=== PATIENT | female | born 1965 | race Two or more races ===

== ENCOUNTER 2019-12-27 23:54 | Inpatient (IN) | payer MEDICAID, OTHER ==
[~2019-12-27] VITALS: Ht 157.5 cm; Wt 84.2 kg
[2019-12-28] MEDS ORDERED: SODIUM CHLORIDE 0.9% 1,000 ML IV ONE ×2 (00:09)
[2019-12-28] MEDS ORDERED: DOXYCYCLINE 100 MG TAB/CAP PO ONE (00:15)
[2019-12-28] MEDS ORDERED: MAGNESIUM SULFATE 1GM/100ML 100 ML IV ONE (00:15)
[2019-12-28] MEDS ORDERED: DexAMETHasone SOD PHOS 10MG/1ML VIAL INJ IV ONE (00:15)
[2019-12-28] MEDS ORDERED: ZINC SULFATE 220mg CAP or TAB PO ONE (00:30)
[2019-12-28] MEDS ORDERED: ASCORBIC ACID 500 MG TAB PO ONE (00:30)
[2019-12-28] MEDS ORDERED: ONDANSETRON HCL 4 MG/2 ML VIAL IV PRN (02:15)
[2019-12-28] MEDS ORDERED: DOCUSATE SOD 100 MG CAP PO PRN (02:15)
[2019-12-28] MEDS ORDERED: MORPHINE SULF INJ 2 MG/ML SYRINGE 1ML IV PRN (02:15)
[2019-12-28] MEDS ORDERED: LORazepam 0.5 MG TAB PO PRN ×2 (02:15→15:00)
[2019-12-28 04:01] LABS: Basophils # (auto) 0 10 ^3/uL (0-0.2); Basophils % (auto) 0.3 % (0.0-2.0); Eosinophils # (auto) 0 10 ^3/uL (0-0.8); Hematocrit 33.5 % (36.0-46.0); Hemoglobin 11.3 g/dL (12.2-16.2); Lymphocytes # (auto) 0.9 10 ^3/uL (0.4-5.4); Lymphocytes % (auto) 10.2 % (10.0-50.0); Mean Corpuscular Hemoglobin 28.8 pg (28.0-32.0); Mean Corpuscular Hgb Conc. 33.6 g/dL (32.0-36.0); Mean Corpuscular Volume 85.7 fL (80.0-100.0); Monocytes # (auto) 0.5 10 ^3/uL (0-1.3); Neutrophils % (auto) 83.5 % (37.0-80.0); Platelet Count (auto) 167 10^3/uL (140-450); Red Blood Cells 3.91 10^6/uL (4.0-5.20); Red Cell Distribution Width 16.1 % (11.8-14.3); White Blood Cell 8.4 10^3/uL (4.4-10.8)
[2019-12-28 04:15] LABS: Albumin 2.6 g/dL (3.4-5.0); Calcium 7.8 mg/dL (8.5-10.1)
[2019-12-28 04:24] LABS: BUN/Creatinine Ratio 9.9; CRP High Sensitivity 13.8 mg/dL (< 0.3); Total Protein 7.1 g/dL (6.4-8.2)
--- NOTE | 2019-12-28 05:48 | NUR ---
Telemetry admit from ER ZAC BURGESS admitted to Telemetry unit after SBAR received. Patient oriented to Sara Lopez, primary RN, unit, room, bed, and unit policies regarding patient care and visiting hours. Patient now on continuous telemetry monitoring, tele box #2 and telemetry reading on arrival to unit is SR at 66. Patient placed on bedside oxygen at 4L, weighed by bedscale and encouraged to call if they need something. All questions and concerns addressed, patient verbalized understanding.
[2019-12-28] MEDS ORDERED: ALBUTEROL SULF HFA 90MCG INH 200DOSE IN SCH ×2 (06:00→22:00)
[2019-12-28] MEDS ORDERED: LEVO25TA6 PO (06:31)
[2019-12-28] MEDS ORDERED: GUAI100S6 PO (06:31)
[2019-12-28] MEDS ORDERED: ACET-1156 PO (06:31)
[2019-12-28] MEDS ORDERED: LISI40TA PO (06:31)
[2019-12-28] MEDS: SODIUM CHLORIDE 0.9% 1,000 ML IV SCH ×2 (07:03→12:15)
[2019-12-28 07:19] VITALS: BP 159/88
--- NOTE | 2019-12-28 07:53 | NUR ---
RT NOTE PT RECEIVED ON 4L NC WITH NO SIGNS OF DISTRESS NOTED. SPO2 95 HR 64 RR 16. WILL CONTINUE TO MONITOR.
[2019-12-28 09:00] VITALS: BP 126/79
[2019-12-28] MEDS: ASCORBIC ACID 1,000 MG TAB PO SCH (10:00)
[2019-12-28] MEDS: CHOLECALCIFEROL (VITD3) 1,000UNIT=25mCg TAB PO SCH (10:00)
[2019-12-28] MEDS: ZINC SULFATE 220mg CAP or TAB PO SCH (10:00)
[2019-12-28] MEDS: DOXYCYCLINE 100 MG TAB/CAP PO SCH ×2 (10:00→21:40)
[2019-12-28] MEDS ORDERED: ENOXAPARIN SOD 40 MG/0.4 ML SYRINGE SC SCH (10:00)
[2019-12-28 12:06] LABS: Urine Bacteria FEW /hpf (None Seen); Urine Blood TRACE /uL (Negative); Urine WBC 3 /hpf (0 - 5)
[2019-12-28 13:00] VITALS: BP 157/71
[2019-12-28] MEDS ORDERED: POTASSIUM CHL 20 Meq TABLET PO ONE (14:45)
[2019-12-28] MEDS ORDERED: FUROSEMIDE 20 MG/2 ML VIAL IV ONE (14:45)
[2019-12-28] MEDS ORDERED: DexAMETHasone 4 MG TAB PO ONE (14:45)
[2019-12-28] MEDS ORDERED: ENOXAPARIN SOD 60 MG/0.6 ML SYRINGE SC ONE (15:00)
[2019-12-28 17:00] VITALS: BP 158/72
[2019-12-28] MEDS: PANTOPRAZOLE 40 MG TAB PO SCH (17:47)
[2019-12-28] MEDS: hydrALAZINE HCL 20 MG/ML VL IV PRN (17:49)
--- NOTE | 2019-12-28 19:20 | NUR ---
Opening Shift Note Assumed care of patient after receiving report from MEME Tilley. Patient is awake and alert, with no S/S of distress/SOB or pain. Patient on 3L of oxygen via NC. Call light within reach, bed in lowest position x2 side rails, HOB semi Fowlers. Instructed on POC and to call for assist PRN, will continue to monitor for changes Q1hr and PRN.
[2019-12-28] MEDS: DexAMETHasone 4 MG TAB PO SCH (21:40)
[2019-12-28] MEDS: ENOXAPARIN SOD 100 MG/1 ML SYRINGE SC SCH (21:41)
[2019-12-28 22:00] VITALS: BP 137/84
[2019-12-29] MEDS: hydrALAZINE HCL 20 MG/ML VL IV PRN ×2 (04:30→12:52)
--- NOTE | 2019-12-29 04:30 | NUR ---
Right AC IV DC'd Patient self DC'd IV from right AC. Patient stated it got caught and pulled out. No trauma to site. Will continue to monitor.
--- NOTE | 2019-12-29 04:36 | NUR ---
Patient complaints of dizziness, BP Patient complains of slight dizziness and mild headache upon awakening. Blood pressure was checked and was seen to be elevated, rechecked and read 180/91. PRN hydralazine given for SBP >150. Will reassess and continue to monitor.
[2019-12-29 04:48] VITALS: BP 180/91
--- NOTE | 2019-12-29 05:16 | NUR ---
BP reassessed BP of 144/56. Patient sleeping with no s/s of distress. Will continue to monitor.
[2019-12-29] MEDS: HYDROcodone-ACET 5/325MG TAB PO PRN (06:04)
--- NOTE | 2019-12-29 07:50 | NUR ---
OPENING NOTE ASSUMED CARE OF PT. ALERT AND ORIENTED. NO S/S OF SOB/DISTRESS NOTED. BED SET TO LOWEST POSITION/LOCKED. BED RAILS UP X2. CALL LIGHT WITHIN REACH. INSTRUCTED PT TO CALL FOR ASSISTANCE. UPDATE ON POC. PT VERBALIZED UNDERSTANDING. WILL CONTINUE TO MONITOR Q1HR AND PRN.
[2019-12-29 07:57] LABS: Basophils # (auto) 0 10 ^3/uL (0-0.2); Basophils % (auto) 0.1 % (0.0-2.0); Eosinophils # (auto) 0 10 ^3/uL (0-0.8); Hematocrit 39.2 % (36.0-46.0); Hemoglobin 13.2 g/dL (12.2-16.2); Lymphocytes # (auto) 1.2 10 ^3/uL (0.4-5.4); Mean Corpuscular Hemoglobin 28.8 pg (28.0-32.0); Mean Corpuscular Hgb Conc. 33.6 g/dL (32.0-36.0); Mean Corpuscular Volume 85.8 fL (80.0-100.0); Monocytes # (auto) 0.9 10 ^3/uL (0-1.3); Monocytes % (auto) 8.9 % (0.0-12.0); Neutrophils # (auto) 7.7 10 ^3/uL (1.6-8.6); Platelet Count (auto) 232 10^3/uL (140-450); Red Blood Cells 4.57 10^6/uL (4.0-5.20); Red Cell Distribution Width 16.6 % (11.8-14.3); White Blood Cell 9.8 10^3/uL (4.4-10.8)
[2019-12-29 08:10] LABS: Albumin 2.6 g/dL (3.4-5.0); Calcium 8.9 mg/dL (8.5-10.1); Potassium 4.1 mmol/L (3.5-5.1)
[2019-12-29 08:13] LABS: BUN/Creatinine Ratio 15.6; Bilirubin, Total 0.7 mg/dL (0.2-1.0); Total Protein 7.8 g/dL (6.4-8.2)
[2019-12-29 09:00] VITALS: BP 144/56
[2019-12-29] MEDS: DexAMETHasone 4 MG TAB PO SCH ×2 (09:09→22:37)
[2019-12-29] MEDS: ZINC SULFATE 220mg CAP or TAB PO SCH (09:09)
[2019-12-29] MEDS: ENOXAPARIN SOD 100 MG/1 ML SYRINGE SC SCH ×2 (09:10→22:36)
[2019-12-29] MEDS: DOXYCYCLINE 100 MG TAB/CAP PO SCH ×2 (09:10→22:36)
[2019-12-29] MEDS: PANTOPRAZOLE 40 MG TAB PO SCH (09:10)
[2019-12-29] MEDS: CHOLECALCIFEROL (VITD3) 1,000UNIT=25mCg TAB PO SCH (09:10)
[2019-12-29] MEDS: ASCORBIC ACID 1,000 MG TAB PO SCH (09:10)
[2019-12-29 13:00] VITALS: BP 172/86
[2019-12-29] MEDS ORDERED: LISINOPRIL 20 MG TAB PO ONE (14:00)
[2019-12-29] MEDS ORDERED: FUROSEMIDE 20 MG/2 ML VIAL IV ONE (14:00)
[2019-12-29] MEDS ORDERED: LEVOTHYROXINE SODIUM 100 MCG TAB PO ONE (14:00)
[2019-12-29] MEDS ORDERED: cefTRIAXone 1GM/50ML D5W 50 ML IV ONE (14:00)
[2019-12-29] MEDS ORDERED: POTASSIUM CHL 10 Meq TABLET PO ONE (14:00)
[2019-12-29 17:00] VITALS: BP 167/91
--- NOTE | 2019-12-29 19:30 | NUR ---
opening note Pt is A&Ox4. Respirations even and nonlabored on 3lnc. Pt denies pain or discomfort at this time, will continue to monitor. no s/s of distress at this time. bed in low locked position, call light within reach.
[2019-12-29 22:00] VITALS: BP 159/84
[2019-12-30 05:00] VITALS: BP 144/72
[2019-12-30] MEDS: LEVOTHYROXINE SODIUM 100 MCG TAB PO SCH (06:26)
[2019-12-30 06:35] LABS: Albumin 2.4 g/dL (3.4-5.0); BUN/Creatinine Ratio 27.5; Calcium 8.4 mg/dL (8.5-10.1)
[2019-12-30 06:38] LABS: Bilirubin, Total 0.4 mg/dL (0.2-1.0); Total Protein 6.8 g/dL (6.4-8.2)
--- NOTE | 2019-12-30 07:05 | NUR ---
closing note pt resting in semi fowlers with the HOB at 30 degrees. Respirations are even and nonlabored on 3Lnc. no s/s of respiratory distress of discomfort. pt is alert and oriented x4. pt remains ambulatory to self. Endorsed care to day shift RN Perri.
[2019-12-30 09:00] VITALS: BP 180/90
[2019-12-30] MEDS: cefTRIAXone 1GM/50ML D5W 50 ML IV SCH (09:43)
[2019-12-30] MEDS: FUROSEMIDE 20 MG/2 ML VIAL IV SCH (09:43)
[2019-12-30] MEDS: POTASSIUM CHL 10 Meq TABLET PO SCH (09:44)
[2019-12-30] MEDS: DexAMETHasone 4 MG TAB PO SCH (09:44)
[2019-12-30] MEDS: PANTOPRAZOLE 40 MG TAB PO SCH (09:44)
[2019-12-30] MEDS: DOXYCYCLINE 100 MG TAB/CAP PO SCH ×2 (09:44→22:03)
[2019-12-30] MEDS: ZINC SULFATE 220mg CAP or TAB PO SCH (09:44)
[2019-12-30] MEDS: ASCORBIC ACID 1,000 MG TAB PO SCH (09:45)
[2019-12-30] MEDS: LISINOPRIL 20 MG TAB PO SCH (09:46)
[2019-12-30] MEDS: CHOLECALCIFEROL (VITD3) 1,000UNIT=25mCg TAB PO SCH (09:46)
[2019-12-30] MEDS: ENOXAPARIN SOD 100 MG/1 ML SYRINGE SC SCH ×2 (09:46→22:04)
[2019-12-30] MEDS: hydrALAZINE HCL 20 MG/ML VL IV PRN ×2 (12:40→19:04)
[2019-12-30 13:00] VITALS: BP 176/89
[2019-12-30 13:40] VITALS: BP 150/83
[2019-12-30] MEDS ORDERED: DEXTROSE (50%) 50ML SYRG IV PRN (14:45)
[2019-12-30] MEDS ORDERED: SODIUM CHL 0.9% IV ONE (15:15)
[2019-12-30] MEDS ORDERED: TOCILIZUMAB IV ONE (15:15)
[2019-12-30] MEDS ORDERED: ACETAMINOPHEN 650 mg PER 20 mL UD PO ONE (16:30)
[2019-12-30] MEDS ORDERED: diphenhdrAMINE HCL 50 MG/1 ML VL IV ONE (16:30)
[2019-12-30] MEDS ORDERED: methylPREDNISolone SOD SUCC 40 MG/ML VL IV ONE (16:30)
[2019-12-30] MEDS: ACCU-CHEK COMFORT CURVE STRIP VI SCH ×2 (16:50→22:00)
[2019-12-30 17:00] VITALS: BP 160/84
[2019-12-30] MEDS ORDERED: TOCILIZUMAB 400 MG in SODIUM CHL 0.9% 80 ML IV ONE (17:00)
--- NOTE | 2019-12-30 17:00 | NUR ---
EMELYID TEST PER PATIENT SHE GOT TESTED IN [place] APPOINTMENT ID# [id number] APPOINTMENT DATE 12/22/2019 RESULTS ON 12/23/2019-POSITIVE RESULTS PROVIDED BY [facility]
[2019-12-30] MEDS: InsuLIN REG 1unit/0.01ml Soln (100units/ml) SC SCH ×2 (17:27→22:34)
--- NOTE | 2019-12-30 17:43 | NUR ---
ACTEMRA STARTED ACTEMRA INFUSION. BP: 155/83. NO S/S OF SOB/DISTRESS NOTED. WILL CONTINUE TO MONITOR.
--- NOTE | 2019-12-30 18:47 | NUR ---
ACTEMRA ACTEMRA INFUSION ENDED. BP: 156/77. NO S/S OF SOB/DISTRESS NOTED. WILL CONTINUE TO MONITOR.
--- NOTE | 2019-12-30 19:20 | NUR ---
Opening Shift Note Received report from Faiza VALENTINE. Assumed care of patient, awake and alert. No S/S of distress/SOB or pain. Instructed on POC and to call for assist PRN, will continue to monitor for changes Q1hr and PRN.
[2019-12-30 22:00] VITALS: BP 158/64
[2019-12-30] MEDS: DexAMETHasone SOD PHOS 4 MG/1ML SDV INJ IV SCH (22:03)
[2019-12-31 05:00] VITALS: BP 159/96
[2019-12-31] MEDS: hydrALAZINE HCL 20 MG/ML VL IV PRN ×2 (05:37→22:12)
[2019-12-31 06:46] LABS: Basophils # (auto) 0 10 ^3/uL (0-0.2); Basophils % (auto) 0.2 % (0.0-2.0); Eosinophils # (auto) 0 10 ^3/uL (0-0.8); Hematocrit 38.8 % (36.0-46.0); Hemoglobin 12.8 g/dL (12.2-16.2); Lymphocytes # (auto) 1.2 10 ^3/uL (0.4-5.4); Lymphocytes % (auto) 10.4 % (10.0-50.0); Mean Corpuscular Hemoglobin 28.8 pg (28.0-32.0); Monocytes # (auto) 0.9 10 ^3/uL (0-1.3); Neutrophils # (auto) 9.4 10 ^3/uL (1.6-8.6); Neutrophils % (auto) 81.4 % (37.0-80.0); Nucleated Red Blood Cells % 0.2 %; Platelet Count (auto) 274 10^3/uL (140-450); Red Blood Cells 4.46 10^6/uL (4.0-5.20); Red Cell Distribution Width 16.8 % (11.8-14.3); White Blood Cell 11.6 10^3/uL (4.4-10.8)
[2019-12-31 06:58] LABS: Potassium 4.5 mmol/L (3.5-5.1)
[2019-12-31] MEDS: ACCU-CHEK COMFORT CURVE STRIP VI SCH ×4 (06:58→22:12)
[2019-12-31] MEDS: LEVOTHYROXINE SODIUM 100 MCG TAB PO SCH (06:58)
[2019-12-31] MEDS: InsuLIN REG 1unit/0.01ml Soln (100units/ml) SC SCH ×4 (06:59→22:13)
[2019-12-31 07:13] LABS: Albumin 2.6 g/dL (3.4-5.0); BUN/Creatinine Ratio 22.2; Bilirubin, Total 0.6 mg/dL (0.2-1.0); CRP High Sensitivity 1.91 mg/dL (< 0.3); Calcium 8.7 mg/dL (8.5-10.1); Total Protein 6.9 g/dL (6.4-8.2)
[2019-12-31 08:00] VITALS: BP 159/96
[2019-12-31] MEDS: DexAMETHasone SOD PHOS 4 MG/1ML SDV INJ IV SCH ×2 (09:13→22:12)
[2019-12-31] MEDS: FUROSEMIDE 20 MG/2 ML VIAL IV SCH (09:13)
[2019-12-31] MEDS: cefTRIAXone 1GM/50ML D5W 50 ML IV SCH (09:13)
[2019-12-31] MEDS: POTASSIUM CHL 10 Meq TABLET PO SCH (09:13)
[2019-12-31] MEDS: ZINC SULFATE 220mg CAP or TAB PO SCH (09:13)
[2019-12-31] MEDS: DOXYCYCLINE 100 MG TAB/CAP PO SCH ×2 (09:14→22:11)
[2019-12-31] MEDS: ENOXAPARIN SOD 100 MG/1 ML SYRINGE SC SCH ×2 (09:14→22:11)
[2019-12-31] MEDS: ASCORBIC ACID 1,000 MG TAB PO SCH (09:14)
[2019-12-31] MEDS: LISINOPRIL 20 MG TAB PO SCH (09:14)
[2019-12-31] MEDS: PANTOPRAZOLE 40 MG TAB PO SCH (09:14)
[2019-12-31] MEDS: CHOLECALCIFEROL (VITD3) 1,000UNIT=25mCg TAB PO SCH (09:14)
[2019-12-31 12:27] VITALS: BP 147/69
--- NOTE | 2019-12-31 14:31 | NUR ---
Nutrition Assessment Notes Please refer to link for full assessment notes. Est Energy needs: 5119-6970 kcals (14-18 kcal/kgBW) Est Protein needs: 70-87 gms/day (0.8-1.0 gm/kgBW) Will continue to monitor and reassess prn. Addendum: 12/31/19 at [address] Amended: Links added.
[2019-12-31 17:00] VITALS: BP 146/94
[2019-12-31 22:00] VITALS: BP 153/89
[2019-12-31] MEDS: TEMAZEPAM 15 MG CAP PO PRN (22:11)
--- NOTE | 2019-12-31 22:12 | NUR ---
BP 153/89, Hydralazine IV given, will continue to monitor.
[2020-01-01] VITALS (7 sets, daily range): BP systolic 133–157; BP diastolic 79–97
[2020-01-01] MEDS: InsuLIN REG 1unit/0.01ml Soln (100units/ml) SC SCH ×4 (06:47→21:52)
[2020-01-01] MEDS: LEVOTHYROXINE SODIUM 100 MCG TAB PO SCH (06:47)
[2020-01-01] MEDS: ACCU-CHEK COMFORT CURVE STRIP VI SCH ×4 (06:47→21:50)
--- NOTE | 2020-01-01 07:30 | NUR ---
Opening Shift Note Assumed care of patient, awake and alert. No S/S of distress/SOB or pain. Instructed on POC and to call for assist PRN, will continue to monitor for changes Q1hr and PRN. Fall precautions in place per safety protocol.
[2020-01-01] MEDS: DexAMETHasone SOD PHOS 4 MG/1ML SDV INJ IV SCH ×2 (10:19→21:50)
[2020-01-01] MEDS: FUROSEMIDE 20 MG/2 ML VIAL IV SCH (10:19)
[2020-01-01] MEDS: cefTRIAXone 1GM/50ML D5W 50 ML IV SCH (10:19)
[2020-01-01] MEDS: ZINC SULFATE 220mg CAP or TAB PO SCH (10:21)
[2020-01-01] MEDS: DOXYCYCLINE 100 MG TAB/CAP PO SCH ×2 (10:21→21:50)
[2020-01-01] MEDS: ASCORBIC ACID 1,000 MG TAB PO SCH (10:21)
[2020-01-01] MEDS: PANTOPRAZOLE 40 MG TAB PO SCH (10:21)
[2020-01-01] MEDS: CHOLECALCIFEROL (VITD3) 1,000UNIT=25mCg TAB PO SCH (10:21)
[2020-01-01] MEDS: POTASSIUM CHL 10 Meq TABLET PO SCH (10:21)
[2020-01-01] MEDS: LISINOPRIL 20 MG TAB PO SCH (10:22)
[2020-01-01] MEDS: ENOXAPARIN SOD 120 MG/0.8 ML SYRINGE SC SCH ×2 (10:22→21:50)
--- NOTE | 2020-01-01 11:52 | NUR ---
Hospitalist MD Holloway at bedside, aware of patient status. No new orders at this time. Will cont to monitor patient.
[2020-01-01] MEDS ORDERED: FUROSEMIDE 20 MG/2 ML VIAL IV ONE (12:15)
[2020-01-01] MEDS ORDERED: POTASSIUM CHL 20 Meq TABLET PO ONE (12:15)
[2020-01-01] MEDS: hydrALAZINE HCL 20 MG/ML VL IV PRN (13:45)
[2020-01-01] MEDS: HYDROcodone-ACET 5/325MG TAB PO PRN (21:50)
--- NOTE | 2020-01-02 00:01 | NUR ---
Plasma transfusion finished, no reactions noted. Patient's states she is fine, breathing comfortably. Will recheck vitals 1 hour post transfusions.
[2020-01-02] MEDS: TEMAZEPAM 15 MG CAP PO PRN ×2 (00:17→23:40)
[2020-01-02 01:05] VITALS: BP 142/89
[2020-01-02 05:53] VITALS: BP 140/76
[2020-01-02] MEDS: LEVOTHYROXINE SODIUM 100 MCG TAB PO SCH (06:26)
[2020-01-02] MEDS: InsuLIN REG 1unit/0.01ml Soln (100units/ml) SC SCH ×4 (06:26→22:00)
[2020-01-02] MEDS: ACCU-CHEK COMFORT CURVE STRIP VI SCH ×4 (06:26→23:16)
[2020-01-02 06:42] LABS: Hematocrit 42.8 % (36.0-46.0); Hemoglobin 14.1 g/dL (12.2-16.2); Mean Corpuscular Hemoglobin 28.6 pg (28.0-32.0); Mean Corpuscular Hgb Conc. 32.9 g/dL (32.0-36.0); Platelet Count (auto) 325 10^3/uL (140-450); Red Blood Cells 4.92 10^6/uL (4.0-5.20); Red Cell Distribution Width 16.6 % (11.8-14.3); White Blood Cell 11.7 10^3/uL (4.4-10.8)
[2020-01-02 06:48] LABS: Basophils % (manual) 0 (0.0-2.0); Blast Cells 0; Eosinophils % (manual) 0 (0-7); Promyelocytes % 0
[2020-01-02 06:59] LABS: Band Neutrophils % (manual) 2; Lymphocytes % (manual) 17 (10.0-50.0); Metamyelocytes % 3; Monocytes % (manual) 6 (0-12); Myelocytes % 4; Reactive Lymphocytes 1
[2020-01-02 07:09] LABS: Albumin 3.2 g/dL (3.4-5.0); Calcium 9.1 mg/dL (8.5-10.1); Potassium 4.4 mmol/L (3.5-5.1)
[2020-01-02 07:12] LABS: BUN/Creatinine Ratio 25.3; Bilirubin, Total 0.6 mg/dL (0.2-1.0); Total Protein 7.6 g/dL (6.4-8.2)
--- NOTE | 2020-01-02 07:15 | NUR ---
Opening Shift Note Assumed care of patient. Patient is awake and alert, with no S/S of distress/SOB or pain. Patient on 2L of oxygen via NC. Call light within reach, bed in lowest position x2 side rails, HOB semi Fowlers. Instructed on POC and to call for assist PRN, will continue to monitor for changes Q1hr and PRN.
--- NOTE | 2020-01-02 07:45 | NUR ---
RT NOTE: WENT TO PTS ROOM TO ASSESS SPO2, PT IS CURRENTLY ON 2L NC, HR 82, SPO2 95% RR 18, NO DISTRESS NOTED AT THIS TIME. PT WAS TAKEN OFF AND ON ROOM TO PERFORM ABG, AT 0815- PTS SPO2 DID NOT DROP BELOW 94% ON RA, RN AWARE THAT ABG WAS NOT DONE AT THIS TIME DUE TO HER SPO2. IF SPO2 DROPS TO CALL ME. WILL CONTINUE TO MONITOR PT.
[2020-01-02 09:20] VITALS: BP 147/81
[2020-01-02] MEDS: cefTRIAXone 1GM/50ML D5W 50 ML IV SCH (10:08)
[2020-01-02] MEDS: PANTOPRAZOLE 40 MG TAB PO SCH (10:09)
[2020-01-02] MEDS: POTASSIUM CHL 10 Meq TABLET PO SCH (10:09)
[2020-01-02] MEDS: CHOLECALCIFEROL (VITD3) 1,000UNIT=25mCg TAB PO SCH (10:09)
[2020-01-02] MEDS: DexAMETHasone SOD PHOS 4 MG/1ML SDV INJ IV SCH ×2 (10:10→23:15)
[2020-01-02] MEDS: ACETAMINOPHEN 500 MG TAB PO PRN ×2 (10:10→23:31)
[2020-01-02] MEDS: ASCORBIC ACID 1,000 MG TAB PO SCH (10:10)
[2020-01-02] MEDS: ZINC SULFATE 220mg CAP or TAB PO SCH (10:10)
[2020-01-02] MEDS: ENOXAPARIN SOD 120 MG/0.8 ML SYRINGE SC SCH ×2 (10:10→23:17)
[2020-01-02] MEDS: LISINOPRIL 20 MG TAB PO SCH (10:11)
[2020-01-02] MEDS: FUROSEMIDE 20 MG/2 ML VIAL IV SCH (10:11)
[2020-01-02 13:09] VITALS: BP 151/85
--- NOTE | 2020-01-02 14:47 | NUR ---
D/C planning Regarding social service consult for home oxygen. Faxed clinical information to [facility] requesting for oxygen portable to be deliver to front lobby. Per Leatha with [facility] they will deliver oxygen portable to front lobby at 15:00 and concentrate to home. RN Will was informed.
--- NOTE | 2020-01-02 15:30 | NUR ---
O2 tank delivered at bedside
[2020-01-02 17:16] VITALS: BP 153/99
--- NOTE | 2020-01-02 19:20 | NUR ---
Opening Shift Note Received report from day time rn. Assumed care of patient, awake and alert. No S/S of distress/SOB or pain. Instructed on POC and to call for assist PRN. Fall precaution measures in place. Will continue to monitor for changes Q1hr and PRN.
[2020-01-02 21:44] VITALS: BP 167/92
[2020-01-02] MEDS: hydrALAZINE HCL 20 MG/ML VL IV PRN (23:31)
[2020-01-03 05:00] VITALS: BP 136/62
[2020-01-03] MEDS: ACCU-CHEK COMFORT CURVE STRIP VI SCH ×3 (06:37→17:00)
[2020-01-03] MEDS: LEVOTHYROXINE SODIUM 100 MCG TAB PO SCH (06:42)
[2020-01-03] MEDS: InsuLIN REG 1unit/0.01ml Soln (100units/ml) SC SCH ×3 (06:42→17:00)
[2020-01-03 09:00] VITALS: BP 135/81
[2020-01-03] MEDS: ZINC SULFATE 220mg CAP or TAB PO SCH (09:12)
[2020-01-03] MEDS: ENOXAPARIN SOD 120 MG/0.8 ML SYRINGE SC SCH (09:12)
[2020-01-03] MEDS: cefTRIAXone 1GM/50ML D5W 50 ML IV SCH (09:12)
[2020-01-03] MEDS: CHOLECALCIFEROL (VITD3) 1,000UNIT=25mCg TAB PO SCH (09:12)
[2020-01-03] MEDS: ASCORBIC ACID 1,000 MG TAB PO SCH (09:13)
[2020-01-03] MEDS: PANTOPRAZOLE 40 MG TAB PO SCH (09:13)
[2020-01-03] MEDS: POTASSIUM CHL 10 Meq TABLET PO SCH (09:13)
[2020-01-03] MEDS: FUROSEMIDE 20 MG/2 ML VIAL IV SCH (09:13)
[2020-01-03] MEDS: LISINOPRIL 20 MG TAB PO SCH (09:13)
[2020-01-03] MEDS: DexAMETHasone SOD PHOS 4 MG/1ML SDV INJ IV SCH (09:19)
--- NOTE | 2020-01-03 12:20 | NUR ---
Patient refusing medications Patient refusing Lasix 40 mg IV one time order, Potassium 20meq PO one time order, Zosyn 3.375 GM/100ml one time order and scheduled order. Attempted to educate patient on importance of complying with medication treatment, patient refused education told this RN to " can you just shut up and leave me alone I already told you I'm not taking no medication. I'm done taking pills and shots". Dr. Sheffield has been made aware. Addendum: 01/03/20 at 1334 by MARION HEATH RN RN wrong patient please discard.
[2020-01-03 13:00] VITALS: BP 132/78
[2020-01-03 16:40] VITALS: BP 132/78
[2020-01-03 17:00] VITALS: BP 144/74
--- NOTE | 2020-01-03 18:00 | NUR ---
Discharge instructions given as ordered. Encourage to follow up with PMD as instructed. All questions and concerns addressed. Patient verbalized understanding. IV removed with catheter intact, pressure dressing applied. Telemetry unit returned to ICU. Patient taken to vehicle via wheelchair with all personal belongings,and oxygen tank, accompanied by staff Allie. No distress noted at time of departure.
== END 2020-01-03 18:00 | disposition home or self-care (01) | DRG 137 ==
LOC: ER 12-28 → TELE 12-28 00:01 → TELE-EAST 12-28 05:48
PROVIDERS: ADMIT Hospitalist; ATTEND Internal Medicine
DX: U07.1 COVID-19 (principal); J12.89 Other viral pneumonia; R79.89 Other specified abnormal findings of blood chemistry; F41.9 Anxiety disorder, unspecified; J44.9 Chronic obstructive pulmonary disease, unspecified; I50.9 Heart failure, unspecified; I11.0 Hypertensive heart disease with heart failure; E87.6 Hypokalemia; E66.9 Obesity, unspecified; E11.9 Type 2 diabetes mellitus without complications; E03.9 Hypothyroidism, unspecified; Z90.49 Acquired absence of other specified parts of digestive tract; Z68.35 Body mass index [BMI] 35.0-35.9, adult; J96.00 Acute respiratory failure, unspecified whether with hypoxia or hypercapnia
CPT/HCPCS: 36415; 36600; 71045; 80053; 81001; 82728; 82805; 82962; 83036; 83615; 83735; 84443; 85007; 85025; 85027; 85379; 86141; 86850; 86900; 86901; 87086; 96365; 96375; 99291; G0378; J0696; J1100; J1815